=== PATIENT | female | born 1985 ===

== ENCOUNTER 2021-08-03 16:37 | Emergency (ER) | payer SELFPAY ==
[~2021-08-03] VITALS: Ht 172.7 cm; Wt 77.1 kg
== END 2021-08-03 17:46 | disposition home or self-care (01) ==
LOC: ER 16:37
DX: G89.29 Other chronic pain (principal); M25.512 Pain in left shoulder; Z76.5 Malingerer [conscious simulation]; Z88.5 Allergy status to narcotic agent; Z98.890 Other specified postprocedural states
CPT/HCPCS: 73030